=== PATIENT | male | born 1955 | race Caucasian/White ===

== ENCOUNTER 2018-09-04 18:56 | Inpatient (IN) | payer OTHER ==
[~2018-09-04] VITALS: Ht 182.9 cm; Wt 78.5 kg
[2018-09-04] MEDS ORDERED: HYDR-4354 PO (19:16)
[2018-09-04] MEDS ORDERED: ALPR0.5T PO (19:16)
--- NOTE | 2018-09-04 19:35 | NUR ---
EKG & chest x-ray done. Pt eating dinner.
--- NOTE | 2018-09-04 19:43 | NUR ---
Placed call to Cordell Ambrosio for psych eval. ETA 1 hr.
[2018-09-04] MEDS ORDERED: HYDROCODONE/APAP 10-325 MG TABLET PO ONE (19:45)
[2018-09-04] MEDS ORDERED: ALPRAZOLAM 0.25 MG TABLET PO ONE (19:45)
[2018-09-04] MEDS ORDERED: HYDROCODONE/APAP 10-325 MG TABLET ONE (19:46)
[2018-09-04] MEDS ORDERED: ALPRAZOLAM 0.5 MG TABLET ONE (19:46)
--- NOTE | 2018-09-04 20:50 | NUR ---
Cordell Ambrosio LCSW, at bedside for PET evaluation.
--- NOTE | 2018-09-04 21:55 | NUR ---
Pt. admitted to MHU , under care of Dr. Melendez/Jessica. Diagnosis: Psychosis. On 515 hold Gravely Disabled Belongs List completed Report given to NEETA Sarmiento
--- NOTE | 2018-09-04 22:00 | NUR ---
GPS:63 year old male admitted to MHU , under care of Dr. Melendez/Jessica for 5150/GD. Patient walked into [facility] c/o hearing voices.confused and unable to care him self. denies hearing voices now. alert and oriented x2 to name and place only.ambulate wth steady gait.assisted with adl's. continue monitoring for safety.
[2018-09-04] MEDS ORDERED: MAGNESIUM HYDROXIDE 30 ML LIQUID UDC PO PRN (22:45)
[2018-09-04] MEDS ORDERED: ACETAMINOPHEN 325 MG TABLET PO PRN (22:45)
[2018-09-04] MEDS ORDERED: TADA5TAB2 PO (23:26)
[2018-09-04 23:42] VITALS: BP 116/79
--- NOTE | 2018-09-05 06:34 | NUR ---
GPS: REMAIN CALM AND COOPERATIVE WITH CARE. NO C/O PAIN OR DISCOMFORT AT THIS TIME. NO AGITATION NOTED.SLEPT 7.15 HRS THROUGH THE NIGHT. DENIES SI. CONTINUE PLAN OF CARE.
[2018-09-05 07:30] VITALS: BP 101/79
[2018-09-05] MEDS: NICOTINE 7 MG/24HR PATCH TD SCH (09:24)
--- NOTE | 2018-09-05 13:06 | NUR ---
UR Note: jewelry bench worker sent clinical fax to Anabel classification case manager, at [facility] [ph: [phone]; fax; [phone]].
[2018-09-05] MEDS: ESCITALOPRAM OXALATE 10 MG TABLET PO SCH (13:43)
--- NOTE | 2018-09-05 14:40 | NUR ---
Activity group Note: Patients were asked to participate in a oiae-t-yxdtclg decorating activity where they decorate their pumpkin and then are asked to share it with the group. Subjective: --- Objective: Patient did not attend. Assessment: Patient needs encouragement to participate in group activity and engage with peers. Plan: cylinder worker will encourage group attendance as scheduled. cylinder worker will continue to provide emotional support and guidance in he;ping patient become more engaged with activities and peers.
[2018-09-05] MEDS: HYDROCODONE/APAP 10-325 MG TABLET PO PRN (15:53)
[2018-09-05] MEDS: LORAZEPAM 1 MG TABLET PO PRN (17:56)
[2018-09-05 19:45] VITALS: BP 102/65
[2018-09-05] MEDS: QUETIAPINE FUMARATE 25 MG TABLET PO SCH (20:49)
--- NOTE | 2018-09-06 05:41 | NUR ---
When advertising writer arrived on shift pt was in bed sleeping, pt is A&O x3, pt admits to hearing voices in his head but states that they do not command him to do anything but clogs his mind. Pt states that it is hard for him to make decisions. Pt was hesitant to take his seroquel. Pt states that he does not like seroquel as it makes him shake. Pt encouraged to take the pill and give feedback to PCP. Pt complied. Pt states that he is estranged from his children. Pt states that he would like to get into a board and care. Pt is focused on pursuing his legal matters (suing the police and for more 07/17 money). I will continue to monitor.
[2018-09-06 08:00] VITALS: BP 111/80
[2018-09-06] MEDS: NICOTINE 7 MG/24HR PATCH TD SCH (08:47)
[2018-09-06] MEDS: ESCITALOPRAM OXALATE 10 MG TABLET PO SCH (08:47)
[2018-09-06] MEDS: CIALIS 5 MG PO SCH (08:47)
[2018-09-06] MEDS: MAG HYDROX/AL HYDROX/SIMETH 30 ML LIQUID UDC PO PRN ×2 (11:17→16:55)
[2018-09-06] MEDS ORDERED: ONDANSETRON ODT 4 MG TAB.RAPDIS SL PRN (12:30)
[2018-09-06] MEDS ORDERED: PANTOPRAZOLE SODIUM 40 MG TABLET.DR PO ONE (12:45)
--- NOTE | 2018-09-06 14:59 | NUR ---
UR Note: lunchroom worker sent clinical fax to Anabel case packer, at [facility] [ph: [phone]; fax; [phone]]. SW will continue to follow-up.
[2018-09-06 16:00] VITALS: BP 120/82
[2018-09-06] MEDS: HYDROCODONE/APAP 10-325 MG TABLET PO PRN (16:55)
[2018-09-06] MEDS: LORAZEPAM 1 MG TABLET PO PRN (17:34)
--- NOTE | 2018-09-06 19:45 | NUR ---
RECEIVED PATIENT IN THE DAY ROOM WATCHING TV. HE IS NOTED A/O X 3, HE IS ABLE TO AMBULATE WITH STEADY GAIT AND ABLE TO MAKE HIS NEEDS KNOWN. HE IS ABLE TO VERBALIZED FEELINGS. PATIENT STATED THAT HE IS FEELING "MUCH BETTER" AND HE WANTS TO HAVE HIS "LIFE BACK IN TRACK". PATIENT DENIES SI. HE DENIES AH/VH. SAFETY WAS EMPHASIS. WILL CONTINUE TO MONITOR CLOSELY.
[2018-09-06 20:00] VITALS: BP 101/64
[2018-09-06] MEDS: QUETIAPINE FUMARATE 25 MG TABLET PO SCH (21:00)
[2018-09-06 21:45] VITALS: BP 98/56
--- NOTE | 2018-09-06 22:00 | NUR ---
SEROQUEL 25MG PO QHS WAS HELD D/T DECREASED B/P. AT 1999 PT'S B/P WAS 101/64MMHG AND PULSE 84BPM, IT WAS RECHECKED AT 2129 AND B/P WAS 98/54 AND PULSE 80. PT IS ASYMPTOMATIC IN NO DISTRESS HE DENIES PAIN OR DISCOMFORT. FLUIDS WERE GIVEN. WILL CONTINUE TO MONITOR CLOSELY.
[2018-09-07] MEDS: PANTOPRAZOLE SODIUM 40 MG TABLET.DR PO SCH (06:33)
[2018-09-07 07:30] VITALS: BP 101/53
[2018-09-07] MEDS: NICOTINE 7 MG/24HR PATCH TD SCH (08:38)
[2018-09-07] MEDS: CIALIS 5 MG PO SCH (08:38)
[2018-09-07] MEDS: ESCITALOPRAM OXALATE 10 MG TABLET PO SCH (08:38)
[2018-09-07] MEDS: HYDROCODONE/APAP 10-325 MG TABLET PO PRN ×2 (08:45→17:16)
--- NOTE | 2018-09-07 09:14 | NUR ---
Initial Discharge Plan: Patient is currently homeless and will require placement upon discharge. SW spoke with patient and explored placement options. Patient is willing to be placed in a B&C upon discharge. SW will continue to collaborate with pt and MD regarding most appropriate discharge plans for this patient. SW will form a safe and proper discharge.
--- NOTE | 2018-09-07 10:40 | NUR ---
UR Note: rail maintenance worker sent clinical fax to Anabel ed case manager, at [facility] [ph: [phone]; fax; [phone]]. rail maintenance worker will continue to follow-up.
[2018-09-07 13:00] VITALS: BP 94/66
[2018-09-07] MEDS: LORAZEPAM 1 MG TABLET PO PRN ×2 (13:01→21:21)
--- NOTE | 2018-09-07 15:26 | NUR ---
Discharge Planning Note: Izzy ([phone]) from [facility] came to assess the patient for potential placement. Per Izzy, the patient is accepted to their facility. Per the patient, the facility is "too expensive" for him to go there and would like to see if there are other options. SW will continue to connect patient to placement options to ensure a safe and proper discharge.
--- NOTE | 2018-09-07 16:10 | NUR ---
Activity Group note: GOAL Patient will actively participate in the group activity of the day or relax in the activity room with fellow patients. INTERVENTION Die Attaching Machine Tender invited patient to participate in a group activity consisting of board games, coloring books, and word puzzles held from 10-10:45 am in the activities room. RESPONSE Patient was asleep when approached to attend the group activity. Patient remained in their room during the group time. PLAN Patient will be invited to attend the next group activity.
[2018-09-07 20:00] VITALS: BP 95/65
[2018-09-07] MEDS: QUETIAPINE FUMARATE 25 MG TABLET PO SCH (20:37)
[2018-09-08] MEDS: HYDROCODONE/APAP 10-325 MG TABLET PO PRN ×3 (03:38→20:32)
[2018-09-08] MEDS: PANTOPRAZOLE SODIUM 40 MG TABLET.DR PO SCH (08:22)
[2018-09-08] MEDS: CIALIS 5 MG PO SCH (09:04)
[2018-09-08] MEDS: NICOTINE 7 MG/24HR PATCH TD SCH (09:04)
[2018-09-08] MEDS: ESCITALOPRAM OXALATE 10 MG TABLET PO SCH (09:04)
[2018-09-08] MEDS: LORAZEPAM 1 MG TABLET PO PRN (16:10)
[2018-09-08 16:42] VITALS: BP 103/72
[2018-09-08 19:43] VITALS: BP 101/61
[2018-09-08] MEDS: QUETIAPINE FUMARATE 25 MG TABLET PO SCH (20:32)
[2018-09-08] MEDS: ZOLPIDEM 5 MG TABLET PO PRN (21:45)
[2018-09-09] MEDS: HYDROCODONE/APAP 10-325 MG TABLET PO PRN ×2 (05:27→16:03)
[2018-09-09 07:30] VITALS: BP 105/66
[2018-09-09] MEDS: LORAZEPAM 1 MG TABLET PO PRN ×2 (08:58→18:43)
[2018-09-09] MEDS: NICOTINE 7 MG/24HR PATCH TD SCH (08:58)
[2018-09-09] MEDS: PANTOPRAZOLE SODIUM 40 MG TABLET.DR PO SCH (08:58)
[2018-09-09] MEDS: CIALIS 5 MG PO SCH (08:58)
[2018-09-09] MEDS: ESCITALOPRAM OXALATE 10 MG TABLET PO SCH (08:58)
[2018-09-09] MEDS ORDERED: NICOTINE 7 MG/24HR PATCH TD SCH (09:00)
[2018-09-09] MEDS: NICOTINE 21 MG/24HR PATCH TD SCH (13:38)
[2018-09-09 15:29] VITALS: BP 101/62
[2018-09-09] MEDS: ZOLPIDEM 5 MG TABLET PO PRN (20:08)
[2018-09-09] MEDS: QUETIAPINE FUMARATE 25 MG TABLET PO SCH (20:08)
[2018-09-09 20:22] VITALS: BP 99/62
[2018-09-10] MEDS: LORAZEPAM 1 MG TABLET PO PRN (02:50)
[2018-09-10] MEDS: HYDROCODONE/APAP 10-325 MG TABLET PO PRN (02:51)
[2018-09-10] MEDS: PANTOPRAZOLE SODIUM 40 MG TABLET.DR PO SCH (06:59)
[2018-09-10 07:30] VITALS: BP 109/62
[2018-09-10] MEDS: CIALIS 5 MG PO SCH (08:38)
[2018-09-10] MEDS: ESCITALOPRAM OXALATE 10 MG TABLET PO SCH (08:38)
[2018-09-10] MEDS: NICOTINE 21 MG/24HR PATCH TD SCH (08:39)
[2018-09-10] MEDS ORDERED: NICOTINE 7 MG/24HR PATCH TD SCH (09:00)
--- NOTE | 2018-09-10 12:20 | NUR ---
Discharge Note: Patient will be discharged to an independent living residence, [facility] [[address] [place] [address]; ] and transportation will be provided by Jordana [ ], electronic funds transfer coordinator, at 12:30pm. freezer worker spoke with Jordana who states they are ready to accept the patient today. Patient is AxOx4 and is aware and agreeable with discharge plans. freezer worker is awaiting call back from Anabel, manager of case management, at [facility] with follow-up appointment information. Once follow-up appointment information is received, social science professor will call Jordana with information to give to patient. Patient was provided with outpatient mental health referrals for [facility] ( ), Mariaa Soria ( ), and National Suicide Prevention Lifeline ( ). Patient was also provided with Carola Jansen [[phone]] free legal services resource. Patient was provided with a brief substance abuse intervention which he chose not to participate in, but did accept the following resources: [facility] [[address] [place] [address]; Tel. ], [facility] [[address] [place] [address] ; Tel. ], [facility] [[address], [place] [address]; ; ], and Substance Abuse and Mental Health Services Administration ([facility]) National Helpline [8-679-817-HELP (8744)]. Addendum: 09/11/18 at 1002 by SHASTA SCHMIDT Additional Information: freezer worker called and spoke with manager of case management, Anabel, at [facility] who provided outpatient follow-up appointment information as follows: Therapy follow-up with Dr. Kellogg [[address] [place] [address]; ]. Appointment is set for September 17 and patient is required to call office for appointment time. Medication management follow-up with Dr. Melendez [[address] [address]; ]. Appointment has beens scheduled for October 02 at 2:00pm.
--- NOTE | 2018-09-10 13:01 | NUR ---
GPS: Nursing Notes: Discharge Notes: patient is awake and responding to her name, cooperative with nursing care, compliant with her medications, following staff directions, denies any SI/HI, denies any AH/VH, denies any pain or discomfort, denies any SOB, discharge to independent living residence - [facility] at [address] [place], [place] [id number] , instructions and prescriptions given to Jordana, wic site coordinator , transported via private vehicle with Jordana to facility. workers compensation claims analyst is awaiting call back from Anabel, director of casework department, at [facility] with follow-up appointment information. Once follow-up appointment information is received, certified social workers in health care will call Jordana with information to give to patient. Patient was provided with outpatient mental health referrals for [facility] Crisis [facility] ( ), Mariaa Soria ( ), and National Suicide Prevention Lifeline ( ). Patient was also provided with Carola Jansen [[phone]] free legal services resource. Patient was provided with a brief substance abuse intervention which he chose not to participate in, but did accept the following resources: [facility] [[address] [place] [address]; Tel. ], [facility] [[address] [place] [address] ; Tel. ], [facility] [[address] [place] [address]; ; ], and Substance Abuse and Mental Health Services Administration ([facility]) National Helpline [7-676-868-HELP (2989)].
--- NOTE | 2018-09-10 14:03 | NUR ---
UR Note: field ironworker sent clinical fax to Anabel disability case manager, at [facility] [ph: [phone]; fax; [phone]]. SW will continue to follow-up.
--- NOTE | 2018-09-12 11:06 | NUR ---
UR Note: UR Note: forensic social worker sent discharge summary to Anabel case checker, at [facility] [ph: [phone]; fax; [phone]].
== END 2018-09-10 13:01 | DRG 882 ==
LOC: ER 18:57 → GPS 21:44
PROVIDERS: ADMIT Psychiatry & Neurology Psychiatry; ATTEND Nurse Practitioner Acute Care
DX: F43.10 Post-traumatic stress disorder, unspecified (principal); Z59.0 Homelessness; F43.12 Post-traumatic stress disorder, chronic; Y38.89 Terrorism involving other means; G89.29 Other chronic pain; M54.5 Low back pain; F51.5 Nightmare disorder; G40.909 Epilepsy, unspecified, not intractable, without status epilepticus; F17.210 Nicotine dependence, cigarettes, uncomplicated; F31.9 Bipolar disorder, unspecified; F15.10 Other stimulant abuse, uncomplicated; J44.9 Chronic obstructive pulmonary disease, unspecified
CPT/HCPCS: 36415; 71045; 93005; A4663; A9150; Q0162

== ENCOUNTER 2018-09-12 16:58 | Emergency (ER) | payer OTHER ==
[~2018-09-12] VITALS: Ht 185.4 cm; Wt 79.4 kg
[~2018-09-12 16:58] MED LIST: HYDR-4354 PO; TADA5TAB2 PO
[2018-09-12] MEDS ORDERED: ALPR0.5T8 PO (17:25)
[2018-09-12] MEDS ORDERED: ZOLP10TA2 PO (17:26)
[2018-09-12] MEDS ORDERED: LORAZEPAM 0.5 MG TABLET PO ONE (17:45)
[2018-09-12] MEDS ORDERED: LORAZEPAM 1 MG TABLET ONE (17:50)
--- NOTE | 2018-09-12 17:52 | NUR ---
Patient discharged to home in stable conditon. Written and verbal after care instructions given. Patient verbalizes understanding of instructions.PT WALKS IN STEADY GAIT. PT NOT DRIVING
== END 2018-09-12 17:56 | disposition home or self-care (01) ==
LOC: ER 16:59
DX: R56.9 Unspecified convulsions (principal); Z76.0 Encounter for issue of repeat prescription; J44.9 Chronic obstructive pulmonary disease, unspecified; G89.29 Other chronic pain; M54.9 Dorsalgia, unspecified; F15.10 Other stimulant abuse, uncomplicated; Z59.0 Homelessness
CPT/HCPCS: A4663